=== PATIENT | female | born 2000 | race Caucasian/White ===

== ENCOUNTER 2022-09-23 14:54 | Outpatient (CLI) | payer BC ==
[2022-09-23 16:09] LABS: BHCG - Serum Negative (NEGATIVE); Pregs Control Background? CLEAR/WHITE (CLR/WHITE); Pregs Control Bar Appear? YES (CONTROL BAR)
== END 2022-09-23 14:55 | disposition home or self-care (01) ==
LOC: CSHLAB 14:54
PROVIDERS: ATTEND Surgery
DX: Z01.812 Encounter for preprocedural laboratory examination (principal); K82.9 Disease of gallbladder, unspecified
CPT/HCPCS: 84703

== ENCOUNTER 2022-09-26 05:59 | Day surgery (SDC) | payer BC ==
[2022-09-24 10:28] VITALS: BMI 29.2
[2022-09-26] MEDS ORDERED: Lidocaine 1% MPF 2 ML VIAL ONE (07:19)
[2022-09-26] MEDS ORDERED: Bupivacaine PF 0.5% 30 ML VIAL ONE (07:56)
[2022-09-26] MEDS ORDERED: EPINEPHrine 1 MG/ML AMP ONE (07:56)
[2022-09-26] MEDS ORDERED: Dexamethasone 4 mg/ml Vial ONE (08:03)
[2022-09-26] MEDS ORDERED: PROPOFOL 20 ML ONE (08:03)
[2022-09-26] MEDS ORDERED: Rocuronium Bromide 10 MG/ML (10ML VIAL) ONE (08:03)
[2022-09-26] MEDS ORDERED: Ondansetron PF 4 MG/2 ML Vial ONE ×2 (08:03→09:26)
[2022-09-26] MEDS ORDERED: Fentanyl 100 MCG/2 ML VIAL ONE (08:03)
[2022-09-26] MEDS ORDERED: Clindamycin/D5W 600 mg/50 ml Premix Bag ONE (08:04)
[2022-09-26] MEDS ORDERED: Midazolam HCl 2 mg/2 ml Vial ONE (08:04)
[2022-09-26] MEDS ORDERED: SUGAMMADEX SODIUM 200 MG/2 ML VIAL ONE (08:06)
[2022-09-26] MEDS ORDERED: PHENYLEPHRINE-NS 100 MCG/ML 10 ML SYRINGE ONE (08:30)
[2022-09-26] MEDS ORDERED: ePHEDrine Sulfate 50 MG/10 ML VIAL ONE (08:37)
[2022-09-26] MEDS ORDERED: Ketorolac Tromethamine 30 MG/ML VIAL ONE (09:03)
[2022-09-26] MEDS ORDERED: HYDROcodone/Acetaminophen 5/325 mg Tablet PO PRN (09:19)
[2022-09-26] MEDS ORDERED: Acetaminophen 325 MG TAB PO PRN (09:19)
[2022-09-26] MEDS ORDERED: HYDROmorphone 0.5 MG/0.5 ML SYRINGE ONE (09:26)
[2022-09-26] MEDS ORDERED: HYDROcodone/Acetaminophen 5/325 mg Tablet ONE (10:19)
== END 2022-09-26 11:05 | disposition home or self-care (01) ==
LOC: CSHSDC 05:59
PROVIDERS: ATTEND Surgery
PROC: 8E0W4CZ Robotic Assisted Procedure of Trunk Region, Percutaneous Endoscopic Approach (ICD-10-PCS; principal; 2022-09-26)
PROC: 0FT44ZZ Resection of Gallbladder, Percutaneous Endoscopic Approach (ICD-10-PCS; principal; 2022-09-26)
DX: K82.9 Disease of gallbladder, unspecified (principal); F90.9 Attention-deficit hyperactivity disorder, unspecified type; E03.9 Hypothyroidism, unspecified; J45.909 Unspecified asthma, uncomplicated; M19.90 Unspecified osteoarthritis, unspecified site; F41.9 Anxiety disorder, unspecified; Z79.899 Other long term (current) drug therapy; Z88.1 Allergy status to other antibiotic agents
CPT/HCPCS: 88304; C1776; J0171; J1100; J1170; J1885; J2250; J2405; J2704; J3010; J3490; S0020